=== PATIENT | male | born 1940 | race Caucasian/White ===

== ENCOUNTER 2019-06-13 16:11 | Outpatient (CLI) | payer MEDICARE, BC ==
--- NOTE | 2019-06-13 16:25 | RAD ---
Chest 2 views HISTORY: Pneumonia. COMPARISON: 09/13/2015. FINDINGS: Cardiac silhouette and pulmonary vasculature are unremarkable. Mediastinum is midline with postoperative changes. Elevation right hemidiaphragm is stable. No confluent airspace consolidation, pneumothorax, or pleural fluid. IMPRESSION: No active cardiopulmonary abnormalities are demonstrated.
== END 2019-06-13 16:12 | disposition home or self-care (01) ==
LOC: BICRAD 16:11
PROVIDERS: ATTEND Family Medicine
DX: J18.9 Pneumonia, unspecified organism (principal)
CPT/HCPCS: 71046

== ENCOUNTER 2019-08-06 09:30 | Observation (INO) | payer MEDICARE, BC ==
--- NOTE | 2019-08-06 11:09 | RAD ---
PORTABLE CHEST 1 VIEW: Date: 08/06/19 Time: 1028 hours HISTORY: Altered mental status and hallucinations. FINDINGS: Comparison made with exam of 06/13/19. Changes of median sternotomy are again seen. The heart size is borderline. There is continued elevati on of the right hemidiaphragm. No lobar consolidation, pneumothoraces, argenis pulmonary edema, or pleu ral effusions are identified. IMPRESSION: No acute process. POS: TPC
--- NOTE | 2019-08-06 11:16 | CT ---
CT BRAIN WITHOUT CONTRAST: Date: 08/06/19 HISTORY: Altered mental status. COMPARISON: 09/28/15. FINDINGS: No evidence of acute infarct, hemorrhage, midline shift, or abnormal extra-axial fluid collections ar e seen. 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 The ventricular size is a ppropriate and the basilar cisterns are patent. The bony calvarium is intact. The visualized paranasa l sinuses and mastoid air cells are well aerated. IMPRESSION: No CT evidence of acute intracranial process. POS: TPC
[2019-08-06 11:31] LABS: Clarity Clear (Clear)
[2019-08-06 11:32] LABS: Bilirubin Negative (Negative); Blood, Urine Negative (Negative); Glucose, Urine (Dipstick) Normal (Negative); Leukocyte Negative Leu/uL (Negative); Nitrite Negative (Negative); Protein, Urine (Dipstick) Negative (Neg-Trace); Urobilinogen Normal mg/dL (Less than 2)
[2019-08-06 11:40] LABS: Amphetamine Not Detected (NotDetected); Barbiturates Screen Not Detected (NotDetected); Benzodiazepine Screen Not Detected (NotDetected); Cocaine Metabolite Screen Not Detected (NotDetected); Medtox Control Line Valid? VALID (VALID); Medtox Reader # READER 1; Methadone Not Detected (NotDetected); Methamphetamine Not Detected (NotDetected); Opiate Screen Not Detected (NotDetected); Oxycodone Screen Not Detected (NotDetected); Phencyclidine (PCP) Not Detected (NotDetected); THC/Cannabinoid Screen Not Detected (NotDetected); Tricyclic Screen Not Detected (NotDetected)
[2019-08-06 11:41] LABS: #Basophils 0.1 thou/uL (0.0-0.2); #Lymphocytes 2.7 thou/uL (1.20-3.40); #Monocytes 0.4 thou/uL (0.11-0.59); #Neutrophils 3.3 thou/uL (1.40-6.50); %Basophils 1.2 % (0.0-1.0); %Eosinophils 0.4 % (0.0-10.0); %Lymphocytes 41.5 % (21.0-51.0); %Monocytes 5.7 % (0.0-10.0); %Neutrophils 51.1 % (42.0-75.0); Hemoglobin 15.8 g/dL (14.0-18.0); Mean Corpuscular HGB CONC 34.3 g/dL (32.0-36.0); Mean Corpuscular Hemoglobin 30.5 pg (27.0-31.0); Mean Platelet Volume 5.7 fL (7.4-10.4); Platelet Count 162 thou/uL (130-400); RBC Distribution Width 12.1 % (11.5-14.5); Red Blood Cell (RBC) Count 5.19 mill/uL (4.70-6.10); White Blood Cell (WBC) Count 6.5 thou/uL (4.8-10.8)
[2019-08-06 12:09] LABS: ALT (SGPT) 24 U/L (8-55); AST (SGOT) 19 U/L (5-34); Albumin 4.6 g/dL (3.4-4.8); Alkaline Phosphatase 51 U/L (40-110); Anion Gap 14 mmol/L (10-20); BUN (Urea Nitrogen) 25 mg/dL (8.4-25.7); Bilirubin, Total 0.7 mg/dL (0.2-1.2); Calc. Creatinine Clearance 0 mL/min (70-130); Calcium 9.9 mg/dL (7.8-10.44); Carbon Dioxide 25 mmol/L (23-31); Chloride 104 mmol/L (98-107); Estimated GFR-MDRD 87; Globulin 2.9 g/dL (2.4-3.5); Glucose 103 mg/dL (83-110); Potassium 4.1 mmol/L (3.5-5.1); Protein, Total 7.5 g/dL (5.8-8.1); Sodium 139 mmol/L (136-145)
[2019-08-06 12:13] LABS: Acetaminophen Less than 6.0 mcg/mL (10.0-30.0); Alcohol Less than 10 mg/dL (Less than 10); Salicylate Less than 8.0 mg/dL (15.0-30.0)
--- NOTE | 2019-08-06 15:14 | HP ---
CHIEF COMPLAINT: Hallucination and delusions. HISTORY OF PRESENT ILLNESS: The patient is a 78-year-old male, who is presenting to the emergency room with hallucinations and delusions. According to the family, his normal mental status is not like this, he is able to communicate and he never had this kind of issue before. Apparently, he started telling the family that he was diagnosed with some lung cancer and that he saw his son in his dream and his son poisoned the surgeon, so he has some delusions and some hallucinations. He did not have any fever. He had some bad infection in May. He went through several rounds of antibiotic and apparently he had some spot on his neck which was lanced and this is not a problem anymore. His primary care physician is Dr. Fox Kim. Surrogate decision maker is the patient's daughter, Elvira. PAST MEDICAL HISTORY: Positive for 1. Gout. 2. Migraine headaches. 3. BPH. 4. Aortic valve regurgitation. 5. Hyperlipidemia. 6. Atrial flutter. PAST SURGICAL HISTORY: 1. Left knee replacement. 2. Aortic valve replacement. PSYCHIATRIC HISTORY: None. FAMILY HISTORY: Mother at the age of 91 of breast cancer and father was 87 when he of CHF. MEDICATIONS: 1. Divalproex, which is Depakote 500 mg tablets two tablets every day. 2. Metoprolol succinate 100 mg once a day. 3. Atorvastatin 40 mg at bedtime. 4. Aspirin 325 mg once a day. 5. Uloric acid one a day. 6. Finasteride 5 mg once a day. SOCIAL HISTORY: He denies any alcohol intake, cigarette smoking, or illicit drug use. REVIEW OF SYSTEMS: All systems were reviewed, 14 of them, and they were normal except for as mentioned in HPI. PHYSICAL EXAMINATION: VITAL SIGNS: His blood pressure is 156/117, pulse is 89, respirations 20, and O2 saturation is 95% on room air. HEENT: His head is atraumatic and normocephalic. Eyes are PERRLA. Sclerae are nonicteric. Oral mucosa is moist. NECK: Supple. LUNGS: Clear. HEART: S1, S2 normal. No S3. No S4. There is an S2 click at the right sternal border, typical for aortic valve . ABDOMEN: Soft, nontender, nondistended. Bowel sounds are present. No organomegaly. EXTREMITIES: No clubbing, cyanosis, or edema. NEUROLOGIC: He is alert and oriented x4. There is no any motor or sensory deficits. Cranial nerves are intact. LABORATORY DATA: Labs showed white count of 6.5, hemoglobin 15.8, hematocrit 36.1, platelet count is 162,000. Normal chemistry. Urinalysis, trace of ketones. Urine drug screen negative. Plasma alcohol less than 10. An electrocardiogram personally reviewed by me showed normal sinus rhythm with ventricular rate of 95 beats per minute and right bundle-branch block. Brain CT personally reviewed by me showed no evidence of acute intracranial process. Chest x-ray was done and it did not show any acute process. IMPRESSION: 1. Hallucinations and delusions. I think that this is related to his Depakote he is taking for migraine headaches. We are going to stop that and see how he recovers. 2. Hypertension. We will start him on his metoprolol succinate since he did not take his medications today. 3. History of gout. We will continue Uloric acid. 4. Migraine headaches, chronic, stable. 5. History of benign prostatic hypertrophy. We will continue his finasteride. 6. Hyperlipidemia. 7. History of atrial fibrillation, currently in sinus rhythm. 8. Status post aortic valve regurgitation and aortic valve replacement, chronic, stable. PLAN: Admission to medical floor for observation. Condition, fair. Activity, bedrest and bathroom privileges. IV Hep-Lock. Stop his Depakote and continue his metoprolol, Uloric, and finasteride. DVT prophylaxis with SCDs and Lovenox subcutaneously every 24 hours. Job ID: [id number]
[2019-08-06 17:16] VITALS: BMI 27.8
[2019-08-07 05:56] LABS: Anion Gap 11 mmol/L (10-20); BUN (Urea Nitrogen) 21 mg/dL (8.4-25.7); Calc. Creatinine Clearance 80 mL/min (70-130); Calcium 9.4 mg/dL (7.8-10.44); Carbon Dioxide 25 mmol/L (23-31); Chloride 106 mmol/L (98-107); Estimated GFR-MDRD 84; Glucose 101 mg/dL (83-110); Potassium 4.2 mmol/L (3.5-5.1); Sodium 138 mmol/L (136-145)
[2019-08-07 06:12] LABS: Band 2 % (5-11); Eosinophils 3 % (0-10); Hemoglobin 15.3 g/dL (14.0-18.0); Lymphocytes 50 % (21-51); MDiff Complete? YES; Mean Corpuscular Hemoglobin 30.1 pg (27.0-31.0); Mean Corpuscular Volume 88.7 fL (78.0-98.0); Mean Platelet Volume 5.8 fL (7.4-10.4); Monocytes 6 % (0-10); Neutrophil 38 % (42-75); Platelet Count 181 thou/uL (130-400); RBC Distribution Width 12.3 % (11.5-14.5); Reactive Lymphocytes 1 % (0-10); Red Blood Cell (RBC) Count 5.07 mill/uL (4.70-6.10); White Blood Cell (WBC) Count 7.7 thou/uL (4.8-10.8)
[2019-08-07] MEDS: Enoxaparin Sodium 40 MG/0.4 ML SYRINGE SC SCH (08:21)
[2019-08-07] MEDS ORDERED: Metoprolol Tartrate 50 MG TAB PO SCH (09:00)
[2019-08-07] MEDS ORDERED: Aripiprazole 2 MG TAB PO SCH (10:00)
[2019-08-07] MEDS: Aspirin 325 mg Enteric Coated Tablet PO SCH (10:35)
[2019-08-07] MEDS: Finasteride 5 MG TAB PO SCH (10:35)
[2019-08-07] MEDS: Febuxostat 40 MG TAB PO SCH (10:36)
--- NOTE | 2019-08-07 11:15 | MRI ---
MRI BRAIN WITH AND WITHOUT CONTRAST: DATE: 08/07/2019 HISTORY: A 78-year-old male with altered mental status: hallucinations. COMPARISON: No prior MRIs. TECHNIQUE: Multiple sequences obtained in axial, sagittal, and coronal planes; pre and post IV injection of gado linium-based contrast agent: MultiHance 20 mL. FINDINGS: In the anterolateral lower right frontal lobe there is a small region of encephalomalacia and gliosis without obvious hemosiderin stain. Mild chronic ischemic white matter changes, mostly in the periventricular white matter. Tiny old lacunar infarctions, at least two, in the right cerebellar hemisphere. No restricted diffusi on. No obstructive hydrocephalus. No abnormal intraaxial enhancement, mass, mass effect, midline shif t or extraaxial fluid collection. Very small mucus retention cyst at the lateral aspect of the left s phenoid air cell. IMPRESSION: 1. No acute intracranial findings. 2. Small old insult in right anterolateral lower frontal lobe, either old infarction or old trauma. 3. At least two tiny old lacunar infarctions in the right cerebellar hemisphere. BHAKTI Schwartz POS: DEEP
--- NOTE | 2019-08-07 13:52 | PRG ---
DATE OF SERVICE: 08/07/2019 SUBJECTIVE: The patient is seen and examined at the bedside. The patient's daughter is present in the room during my visit. She is concerned about her father not being able to function in his home. Apparently, the granddaughter told her that he has been calling her for quite some time and telling her all kinds of stories which did not have any base of existence in reality. OBJECTIVE: VITAL SIGNS: Blood pressure is 148/82, pulse is 88, temperature is 97.2, respirations 20, and O2 saturation is 93%. HEENT: His head is atraumatic and normocephalic. Eyes are PERRLA. Sclerae are nonicteric. Oral mucosa is moist. NECK: Supple. LUNGS: Clear. HEART: S1, S2 normal. No S3. No S4. No any murmur. ABDOMEN: Soft, nontender. Bowel sounds are present. No organomegaly. EXTREMITIES: No clubbing, cyanosis, or edema. NEUROLOGIC: He follows my commands. He is alert and oriented x4. There is no any motor or sensory deficits. LABORATORY DATA: Normal CBC today and normal chemistry. IMPRESSION: 1. Hallucinations. According to the family, he had those hallucinations for quite some time. I felt that this was related to his Depakote, but most likely he has some depression with psychotic features. We will get MRI to rule out any organic cause and we will start him on Zoloft and Abilify. 2. Hypertension. 3. History of gout. 4. Migraine headaches. 5. History of benign prostatic hypertrophy. 6. Hyperlipidemia. 7. History of atrial fibrillation, currently in sinus rhythm. 8. Status post aortic valve regurgitation and aortic valve replacement, chronic, stable. PLAN: As I mentioned above, start him on Abilify and Zoloft. MRI of the brain to rule out any organic cause of his hallucinations and continue DVT prophylaxis. He should be able to go home as soon as we control his hallucination. Job ID: [id number]
--- NOTE | 2019-08-07 18:38 | ULT ---
EXAM: Carotid Doppler PROVIDED CLINICAL HISTORY: No vision changes COMPARISON: 10/04/2015 FINDINGS: Grayscale and color Doppler sonography with spectral analysis was performed of the extracranial carot id system bilaterally. Minimal atherosclerotic plaque right internal carotid artery. There is no evidence for a hemodynamically significant internal carotid artery stenosis by peak systolic velocity or ratio criteria. Antegrade flow is seen in the vertebral arteries. IMPRESSION: No sonographic evidence for a hemodynamically significant internal carotid artery stenosis.
[2019-08-07] MEDS: Atorvastatin Calcium 40 MG TAB PO SCH (20:38)
[2019-08-08] MEDS: Enoxaparin Sodium 40 MG/0.4 ML SYRINGE SC SCH (08:46)
[2019-08-08] MEDS: Aspirin 325 mg Enteric Coated Tablet PO SCH (08:46)
[2019-08-08] MEDS: Finasteride 5 MG TAB PO SCH (08:46)
[2019-08-08] MEDS: Febuxostat 40 MG TAB PO SCH (11:23)
[2019-08-08] MEDS: Aripiprazole 2 MG TAB PO SCH (11:23)
--- NOTE | 2019-08-08 18:48 | PDOC.HOSPP ---
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 UTI was ruled out with UA. depakote was discontinued but symptoms continued. No new problem. - Objective Vital Signs & Weight: Vital Signs (12 hours) Temp Pulse Resp BP Pulse Ox 08/08/19 16:00 97.9 F 60 18 135/85 96 08/08/19 12:00 98.1 F 69 18 114/76 95 08/08/19 07:49 98.1 F 76 20 153/96 H 95 Weight Admit Weight 183 lb 8 oz Weight 183 lb 5 oz I&O: 08/07/19 08/08/19 08/09/19 06:59 06:59 06:59 Intake Total 4810 720 Output Total 180 Balance 4630 720 Result Diagrams: 08/07/19 05:05 08/07/19 05:05 Hospitalist ROS - Medication Medications: Active Medications Generic Name Dose Route Start Last Admin Trade Name Aicha PRN Reason Stop Dose Admin Aripiprazole 2 mg 08/08/19 09:00 08/08/19 11:23 Abilify PO 2 mg DAILY AMBREEN Administration Aspirin 325 mg 08/07/19 09:00 08/08/19 08:46 Ecotrin PO 325 mg DAILY AMBREEN Administration Atorvastatin Calcium 40 mg 08/07/19 21:00 08/07/19 20:38 Lipitor PO 40 mg HS AMBREEN Administration Enoxaparin Sodium 40 mg 08/07/19 09:00 08/08/19 08:46 Lovenox SC 40 mg 09 AMBREEN Administration Febuxostat 40 mg 08/07/19 09:00 08/08/19 11:23 Uloric PO 40 mg DAILY AMBREEN Administration Finasteride 5 mg 08/07/19 09:00 08/08/19 08:46 Proscar PO 5 mg DAILY AMBREEN Administration Metoprolol Succinate 100 mg 08/08/19 09:00 08/08/19 08:46 Toprol Xl PO 100 mg DAILY AMBREEN Administration Sertraline HCl 50 mg 08/07/19 09:00 08/08/19 08:46 Zoloft PO 50 mg DAILY AMBREEN Administration - Exam General Appearance: awake alert Eye: anicteric sclera ENT: normocephalic atraumatic, moist mucosa Neck: supple, symmetric Heart: RRR Respiratory: no wheezes, no rales, no ronchi, normal chest expansion Gastrointestinal: soft, non-tender, non-distended, normal bowel sounds Extremities: no cyanosis, no edema Neurological: cranial nerve grossly intact, no focal deficits Psychiatric: A&O x 3 Psychiatric - other findings: Still having hallucinations Hosp A/P (1) AMS (altered mental status) Code(s): R41.82 - ALTERED MENTAL STATUS, UNSPECIFIED Status: Acute (2) Hallucinations Code(s): R44.3 - HALLUCINATIONS, UNSPECIFIED Status: Acute (3) Depression Code(s): F32.9 - MAJOR DEPRESSIVE DISORDER, SINGLE EPISODE, UNSPECIFIED Status : Acute (4) Aortic valve replaced Code(s): Z95.2 - PRESENCE OF PROSTHETIC HEART VALVE Status: Acute (5) Atrial fibrillation or flutter Code(s): DBE1290 - Status: Acute - Plan Continue current medications Consult
[2019-08-08] MEDS: Atorvastatin Calcium 40 MG TAB PO SCH (20:03)
[2019-08-09] MEDS: Finasteride 5 MG TAB PO SCH (09:44)
[2019-08-09] MEDS: Aspirin 325 mg Enteric Coated Tablet PO SCH (09:44)
[2019-08-09] MEDS: Enoxaparin Sodium 40 MG/0.4 ML SYRINGE SC SCH (09:45)
[2019-08-09] MEDS: Aripiprazole 2 MG TAB PO SCH (09:53)
[2019-08-09] MEDS: Febuxostat 40 MG TAB PO SCH (09:54)
[2019-08-09 16:24] VITALS: BP 158/96; TEMP 97.5
--- NOTE | 2019-08-11 06:26 | DIS ---
DATE OF ADMISSION: 08/06/2019 DATE OF DISCHARGE: 08/09/2019 PRIMARY CARE PHYSICIAN: Fox Kim MD DISCHARGE DIAGNOSES: 1. Acute psychosis with hallucinations and delusions. 2. Acute mental status change. 3. Depression. 4. Paroxysmal atrial fibrillation or flutter. 5. Aortic valve replacement. CONSULT: Mental Health. HOSPITAL COURSE: A 78-year-old male with known history of depression with psychosis, atrial flutter, and aortic valve replacement, admitted due to mental status change of hallucination and delusions. There was a concern for acute or chronic pathology being responsible for the mental status change. The patient was evaluated with urinalysis and CT scan of the brain, which was unremarkable. It was also felt that Depakote maybe responsible, hence Depakote was substituted with Prozac and Abilify, but delusions and psychosis persisted. Mental Health consult was obtained, and the patient was felt to have acute psychosis and inpatient treatment recommended. The patient remained stable and was subsequently discharged to inpatient psych for further treatment. PHYSICAL EXAMINATION: VITAL SIGNS: Temperature 97.5, pulse 71, respiratory rate 16, SpO2 of 94% on room air, blood pressure 168/96. GENERAL: Elderly male, in no obvious distress. Afebrile. Anicteric. Acyanotic. HEENT: Normocephalic, atraumatic. Oral mucosa is moist. CARDIOVASCULAR: Regular rhythm and rate with soft systolic murmur. RESPIRATORY: Good air entry bilaterally with no crackles or rhonchi, or use of accessory muscles. GI: Full, soft, nontender, nondistended with normal bowel sounds. EXTREMITIES: Grossly normal looking atraumatic with no edema or erythema. DYE HOUSE HELPER: Conscious, alert, and oriented x3 with appropriate mental status. The patient continued to have hallucinations both visual and auditory. DISCHARGE CONDITION: Stable. DISCHARGE DISPOSITION: Inpatient psych. DISCHARGE MEDICATIONS: 1. Lipitor 40 mg p.o. daily at bedtime. 2. Uloric 40 mg p.o. daily. 3. Finasteride 5 mg p.o. daily. 4. Metoprolol succinate 100 mg p.o. daily. 5. Abilify 2 mg p.o. daily. 6. Aspirin 81 mg p.o. daily. 7. Sertraline 50 mg p.o. daily. Job ID: [id number]
== END 2019-08-09 16:40 | disposition short-term general hospital (02) ==
LOC: ERS 09:30 → ERHOLD 13:15 → INTOOBSV 13:15 → T4-B 15:52
PROVIDERS: ADMIT Internal Medicine; ATTEND Internal Medicine
DX: F23 Brief psychotic disorder (principal); F32.9 Major depressive disorder, single episode, unspecified; N40.0 Benign prostatic hyperplasia without lower urinary tract symptoms; E78.5 Hyperlipidemia, unspecified; I48.91 Unspecified atrial fibrillation; I48.92 Unspecified atrial flutter; M10.9 Gout, unspecified; G43.909 Migraine, unspecified, not intractable, without status migrainosus; Z79.82 Long term (current) use of aspirin; Z79.899 Other long term (current) drug therapy; Z88.8 Allergy status to other drugs, medicaments and biological substances; Z95.4 Presence of other heart-valve replacement
CPT/HCPCS: 70450; 70553; 71045; 80048; 80306; 80307; 81003; 84484; 85025; 87804 ×2; 93005; 93306; 93880; 96372 ×3; 97139; 99285; G0378 ×4; 36415; 80053; 84443; J1650

== ENCOUNTER 2019-10-20 21:03 | Emergency (ER) | payer MEDICARE, BC ==
[2019-10-20 22:28] LABS: Hemoglobin 14.3 g/dL (14.0-18.0); Mean Corpuscular HGB CONC 34.9 g/dL (32.0-36.0); Mean Corpuscular Hemoglobin 31.5 pg (27.0-31.0); Mean Corpuscular Volume 90.3 fL (78.0-98.0); RBC Distribution Width 12.2 % (11.5-14.5); Red Blood Cell (RBC) Count 4.54 mill/uL (4.70-6.10); White Blood Cell (WBC) Count 4.9 thou/uL (4.8-10.8)
[2019-10-20 22:42] LABS: ALT (SGPT) 15 U/L (8-55); AST (SGOT) 13 U/L (5-34); Albumin 4.3 g/dL (3.4-4.8); Alkaline Phosphatase 45 U/L (40-110); Anion Gap 14 mmol/L (10-20); BUN (Urea Nitrogen) 26 mg/dL (8.4-25.7); Bilirubin, Total 0.3 mg/dL (0.2-1.2); CK (CPK) 72 U/L (30-200); Calc. Creatinine Clearance 0 mL/min (70-130); Calcium 9.2 mg/dL (7.8-10.44); Carbon Dioxide 25 mmol/L (23-31); Chloride 107 mmol/L (98-107); Estimated GFR-MDRD 81; Globulin 2.5 g/dL (2.4-3.5); Glucose 122 mg/dL (83-110); Potassium 3.8 mmol/L (3.5-5.1); Protein, Total 6.8 g/dL (5.8-8.1); Sodium 142 mmol/L (136-145)
--- NOTE | 2019-10-20 22:46 | CT ---
Head CT without contrast 10/20/2019: COMPARISON: 08/06/2019 HISTORY: Weakness and fatigue, altered mental status TECHNIQUE: Axial CT imaging at 5 mm intervals from vertex through skull base without contrast FINDINGS: The imaged paranasal sinuses and mastoid air cells are well-aerated. No displaced calvarial fracture. No intracranial hemorrhage, midline shift, or mass effect. IMPRESSION: No acute findings.
--- NOTE | 2019-10-20 22:48 | RAD ---
Portable frontal chest radiograph: 10/20/2019 COMPARISON: 08/06/2019 HISTORY: Altered mental status, weakness FINDINGS: Stable heart and mediastinal contours. Stable midline sternotomy wires. No focal consolidat ion or alveolar edema. IMPRESSION: No acute findings.
[2019-10-20 22:54] LABS: #Basophils 0.1 thou/uL (0.0-0.2); #Eosinphils 0.1 thou/uL (0.0-0.7); #Lymphocytes 2.3 thou/uL (1.20-3.40); #Monocytes 0.4 thou/uL (0.11-0.59); #Neutrophils 2.1 thou/uL (1.40-6.50); %Basophils 2.4 % (0.0-1.0); %Eosinophils 1.2 % (0.0-10.0); %Lymphocytes 46.5 % (21.0-51.0); %Monocytes 7.6 % (0.0-10.0); %Neutrophils 42.3 % (42.0-75.0); Large Platelets SLIGHT; MDiff Complete? YES; Mean Platelet Volume 6.4 fL (7.4-10.4); Platelet Count 97 thou/uL (130-400); Platelet Morphology Comment Appears Decreased
[2019-10-20 23:37] LABS: Bilirubin Negative (Negative); Blood, Urine Negative (Negative); Clarity Clear (Clear); Glucose, Urine (Dipstick) Normal (Negative); Leukocyte Negative Leu/uL (Negative); Nitrite Negative (Negative); Protein, Urine (Dipstick) 20 mg/dL (Neg-Trace)
== END 2019-10-21 | disposition home or self-care (01) ==
LOC: ERS 21:03
DX: F03.90 Unspecified dementia, unspecified severity, without behavioral disturbance, psychotic disturbance, mood disturbance, and anxiety (principal); I48.92 Unspecified atrial flutter; E78.5 Hyperlipidemia, unspecified; E78.00 Pure hypercholesterolemia, unspecified; F32.9 Major depressive disorder, single episode, unspecified; Z86.73 Personal history of transient ischemic attack (TIA), and cerebral infarction without residual deficits; Z79.899 Other long term (current) drug therapy; Z79.82 Long term (current) use of aspirin
CPT/HCPCS: 36415; 70450; 71045; 80053; 81003; 82550; 83605; 83880; 84484; 85025; 87040; 87086; 87804; 93005; 94760

== ENCOUNTER 2020-08-15 21:50 | Emergency (ER) | payer MEDICARE, BC ==
[2020-08-15 22:25] LABS: Hemoglobin 12.1 g/dL (14.0-18.0); INR-International Normal Ratio 1.1; Mean Corpuscular HGB CONC 32.7 g/dL (32.0-36.0); Mean Corpuscular Hemoglobin 30.4 pg (27.0-31.0); Prothrombin Time 14.1 sec (12.0-14.7); RBC Distribution Width 11.7 % (11.5-14.5); Red Blood Cell (RBC) Count 3.98 mill/uL (4.70-6.10); White Blood Cell (WBC) Count 4.8 thou/uL (4.8-10.8)
--- NOTE | 2020-08-15 22:39 | RAD ---
EXAM: CHEST ONE VIEW HISTORY: Sepsis. Difficulty breathing. COMPARISON: 10/20/2019 FINDINGS: Postoperative changes related to median sternotomy and cardiac valve replacement are noted. Cardiac s ilhouette is magnified by portable technique, shallow depth inspiration, and patient rotation to the right. There is accentuation of bronchovascular markings due to shallow depth inspiration and por table technique as well. Linear atelectasis is present at the right lung base. There is no consolidation or pleural fluid seen. Osteopenia is present. No other interval change. IMPRESSION: No acute cardiopulmonary process.
[2020-08-15 22:40] LABS: ALT (SGPT) Less than 7 U/L (8-55); AST (SGOT) 16 U/L (5-34); Albumin 3.7 g/dL (3.4-4.8); Alkaline Phosphatase 37 U/L (40-110); Anion Gap 14 mmol/L (10-20); BUN (Urea Nitrogen) 24 mg/dL (8.4-25.7); Bilirubin, Total 0.6 mg/dL (0.2-1.2); Calc. Creatinine Clearance 0 mL/min (70-130); Calcium 8.7 mg/dL (7.8-10.44); Carbon Dioxide 24 mmol/L (23-31); Chloride 104 mmol/L (98-107); Globulin 2.4 g/dL (2.4-3.5); Glucose 108 mg/dL (83-110); Potassium 3.9 mmol/L (3.5-5.1); Protein, Total 6.1 g/dL (5.8-8.1); Sodium 138 mmol/L (136-145)
[2020-08-15 22:42] LABS: #Basophils 0.1 thou/uL (0.0-0.2); #Lymphocytes 1.3 thou/uL (1.20-3.40); #Monocytes 0.3 thou/uL (0.11-0.59); %Basophils 2.2 % (0.0-1.0); %Eosinophils 0.3 % (0.0-10.0); %Lymphocytes 27.8 % (21.0-51.0); %Neutrophils 62.6 % (42.0-75.0); Mean Platelet Volume 6.8 fL (7.4-10.4); Platelet Count 67 thou/uL (130-400); Platelet Morphology Comment Appears Decreased
[2020-08-15] MEDS ORDERED: cefTRIAXone\\ROCEPHIN 1 GM VIAL ONE (22:56)
[2020-08-15 23:03] LABS: Bilirubin Negative (Negative); Blood, Urine Negative (Negative); Clarity Clear (Clear); Glucose, Urine (Dipstick) Normal (Negative); Ketone, Urine 10 mg/dL (Negative); Leukocyte Negative Leu/uL (Negative); Nitrite Negative (Negative); Protein, Urine (Dipstick) 20 mg/dL (Neg-Trace); Urobilinogen 3 mg/dL (Less than 2); pH, Urine 5.5 (5.0-9.0)
[2020-08-15 23:29] LABS: SARS-CoV-2 NAA Rapid Test DETECTED (NotDetected)
== END 2020-08-16 01:18 ==
LOC: ERS 21:50
DX: U07.1 COVID-19 (principal); E78.5 Hyperlipidemia, unspecified; E78.00 Pure hypercholesterolemia, unspecified; I48.91 Unspecified atrial fibrillation; Z79.82 Long term (current) use of aspirin; Z79.899 Other long term (current) drug therapy
CPT/HCPCS: 0240U; 71045; 80053; 81003; 83605; 83880; 85025; 85610; 85730; 87040; 87086; 93005; 94760; 96365; 96366; 99285; 36415; J0696